=== PATIENT | male | born 1955 | race Two or more races ===

== ENCOUNTER 2023-11-01 18:03 | Emergency (ER) | payer BC, MEDICAID ==
[~2023-11-01] VITALS: Ht 165.1 cm; Wt 82.0 kg
[2023-11-01 18:16] VITALS: BP 145/61; PULSE 81; RESP 16; TEMP 98.5; O2SAT 95
[2023-11-01] MEDS: ACYCLOVIR 400 MG TAB PO ONE (21:00)
[2023-11-01] MEDS: KETOROLAC TROMETH 60MG/2ML VIAL IM ONE (21:00)
[2023-11-01] MEDS: DexAMETHasone SOD PHOS 10MG/1ML VIAL INJ IM ONE (21:01)
[2023-11-01] MEDS ORDERED: VALA1TAB PO (21:46)
[2023-11-01] MEDS ORDERED: IBUP-1455 PO (21:46)
[2023-11-01] MEDS ORDERED: PERCOT PO (21:46)
== END 2023-11-01 21:50 | disposition home or self-care (01) ==
LOC: ER 18:03
DX: B02.9 Zoster without complications (principal)
CPT/HCPCS: 96372; 99284; J1100; J1885